=== PATIENT | female | born 1975 | race Caucasian/White ===

== ENCOUNTER 2021-01-25 17:31 | Observation (INO) | payer MEDICAID, OTHER ==
[~2021-01-25] VITALS: Ht 149.9 cm; Wt 105.5 kg
[2021-01-25] MEDS ORDERED: BUSP7.5T5 PO (17:50)
[2021-01-25] MEDS ORDERED: CETI10TA32 PO (17:51)
[2021-01-25] MEDS ORDERED: CYCL5TAB PO (17:51)
[2021-01-25] MEDS ORDERED: DULO30CA2 PO (17:52)
[2021-01-25] MEDS ORDERED: ALBU18HF MT (17:53)
[2021-01-25 18:16] LABS: BASOPHILS % (AUTO) 0 % (0-1); EOSINOPHILS % (AUTO) 1 % (1-7); LYMPHOCYTES % (AUTO) 27 % (22-44); MEAN CORPUSCULAR HGB CONC 34.7 g/dL (32.4-35.8); MEAN PLATELET VOLUME 8.2 fL (7.4-10.4); MONOCYTES % (AUTO) 7 % (2-9); NEUTROPHILS % (AUTO) 64 % (42-75); PLATELET COUNT 321 x10^3/uL (130-400); RED BLOOD COUNT 4.76 x10^6/uL (3.82-5.3); RED CELL DISTRIBUTION WIDTH 13.3 % (9.6-15.2)
[2021-01-25 18:17] LABS: MD NO
[2021-01-25 18:27] LABS: ALBUMIN 3.4 g/dL (3.4-5.0); ANION GAP 8 mmol/L (5-15); CALCIUM 8.4 mg/dL (8.5-10.1); CHLORIDE 107 mmol/L (98-107); CREATININE 0.74 mg/dL (0.55-1.02)
[2021-01-25 18:35] LABS: ALANINE AMINOTRANSFERASE 45 U/L (12-78); ALKALINE PHOSPHATASE 105 U/L (45-117); BILIRUBIN,TOTAL 0.6 mg/dL (0.2-1.0); TOTAL PROTEIN 7.3 g/dL (6.4-8.2)
--- NOTE | 2021-01-25 19:00 | NUR ---
report from andie felix
--- NOTE | 2021-01-25 19:40 | NUR ---
pt chart placed for recheck by erp
[2021-01-25] MEDS ORDERED: LORazepam 2 MG/ML, 1ML IVPush ONE (20:30)
--- NOTE | 2021-01-25 21:30 | NUR ---
Pt reports that med relieved a majority of her numbness, still has numbness in R arm, VSS, NADN
[2021-01-25] MEDS ORDERED: ASPIRIN 81 MG TABLET CHEW ONE (22:26)
[2021-01-25] MEDS ORDERED: ASPIRIN 81 MG TABLET CHEW PO ONE (22:30)
--- NOTE | 2021-01-25 22:50 | NUR ---
Report to Sailaja MAXWELL
[2021-01-25 23:20] VITALS: BP 105/69
[2021-01-25] MEDS ORDERED: DOCUSATE 100 MG CAPSULE PO PRN (23:30)
[2021-01-25] MEDS ORDERED: hydrALAzine 20 MG/ML, 1ML IVPush PRN (23:30)
[2021-01-25] MEDS ORDERED: ONDANSETRON ODT 4 MG PO PRN (23:30)
[2021-01-25] MEDS ORDERED: ONDANSETRON 2MG/ML, 2ML IVPush PRN (23:30)
[2021-01-25] MEDS ORDERED: PROMETHAZINE 25 MG/ML, 1ML IM PRN (23:30)
[2021-01-25] MEDS ORDERED: ACETAMINOPHEN 325 MG TABLET PO PRN (23:30)
[2021-01-25] MEDS ORDERED: POTASSIUM CHLORIDE 20 MEQ TAB.ER.PRT PO ONE (23:30)
[2021-01-25] MEDS ORDERED: POLYETHYLENE GLYCOL 17 GM PACKET PO PRN (23:30)
[2021-01-25] MEDS ORDERED: BISACODYL 10 MG SUPP PR PRN (23:30)
[2021-01-25] MEDS ORDERED: ALBUTEROL SULFATE 2.5 MG/3 ML NPPB PRN (23:30)
[2021-01-26 00:35] VITALS: BP 105/69
[2021-01-26 01:16] VITALS: BP 111/74
[2021-01-26 02:01] VITALS: BP 110/68
[2021-01-26] MEDS ORDERED: MECLIZINE 12.5 MG TABLET PO PRN (04:00)
[2021-01-26 05:26] LABS: BASOPHILS % (AUTO) 1 % (0-1); EOSINOPHILS % (AUTO) 2 % (1-7); LYMPHOCYTES % (AUTO) 37 % (22-44); MEAN CORPUSCULAR HEMOGLOBIN 31.3 pg (27.0-34.8); MEAN CORPUSCULAR HGB CONC 35.1 g/dL (32.4-35.8); MEAN PLATELET VOLUME 8.7 fL (7.4-10.4); MONOCYTES % (AUTO) 9 % (2-9); NEUTROPHILS % (AUTO) 51 % (42-75); PLATELET COUNT 278 x10^3/uL (130-400); RED CELL DISTRIBUTION WIDTH 13.3 % (9.6-15.2)
[2021-01-26 05:28] LABS: MD NO
[2021-01-26 05:38] LABS: ALBUMIN 3.1 g/dL (3.4-5.0); ANION GAP 7 mmol/L (5-15); CALCIUM 8.2 mg/dL (8.5-10.1); CHLORIDE 108 mmol/L (98-107)
[2021-01-26 05:48] LABS: ALANINE AMINOTRANSFERASE 42 U/L (12-78); ALKALINE PHOSPHATASE 95 U/L (45-117); BILIRUBIN,TOTAL 0.8 mg/dL (0.2-1.0); CHOLESTEROL, TOTAL 130 mg/dL (140-239); CREATININE 0.69 mg/dL (0.55-1.02); HDL CHOL % 33 % (28-40); HDL CHOLESTEROL (DIRECT) 43 mg/dL (40-60); LDL CHOLESTEROL,CALCULATED 68 mg/dL (54-169); LDL/HDL RATIO 1.6 (0.5-3.0); TOTAL PROTEIN 6.8 g/dL (6.4-8.2); TRIGLYCERIDES 97 mg/dL (50-200); VLDL CHOLESTEROL 19 mg/dL (0-25)
[2021-01-26] MEDS ORDERED: DIAZEPAM 5 MG/ML, 2ML IV ONE (07:00)
[2021-01-26] MEDS: HYDROCHLOROTHIAZIDE 12.5 MG CAPSULE PO SCH ×2 (07:38→20:48)
[2021-01-26 07:43] VITALS: BP 127/85
[2021-01-26] MEDS ORDERED: BUSPIRONE 5 MG TABLET PO SCH (09:00)
[2021-01-26] MEDS ORDERED: DULOXETINE 30 MG CAPSULE.DR PO SCH (09:00)
[2021-01-26 13:06] VITALS: BP 120/81
[2021-01-26] MEDS: OXYcodone IR 5MG TABLET PO PRN ×2 (14:14→18:40)
[2021-01-26] MEDS ORDERED: SUMATRIPTAN 25 MG TABLET ONE (17:58)
[2021-01-26] MEDS ORDERED: SUMATRIPTAN 50 MG TABLET PO ONE (18:00)
[2021-01-26 18:54] VITALS: BP 117/78
[2021-01-26] MEDS ORDERED: OMNIPAQUE 350 MG/ML, 100ML BOTTLE ONE (20:31)
[2021-01-26] MEDS ORDERED: TEMAZEPAM 15 MG CAPSULE ONE (20:45)
[2021-01-26] MEDS ORDERED: TEMAZEPAM 15 MG CAPSULE PO PRN (21:00)
[2021-01-27 01:02] VITALS: BP 127/88
[2021-01-27 06:54] VITALS: BP 132/90
[2021-01-27] MEDS ORDERED: SUMATRIPTAN 25 MG TABLET ONE (07:58)
[2021-01-27] MEDS ORDERED: SUMATRIPTAN 50 MG TABLET PO PRN (08:00)
[2021-01-27] MEDS ORDERED: KETOROLAC 30 MG/1 ML IM ONE (08:00)
[2021-01-27] MEDS ORDERED: BUSPIRONE 5 MG TABLET PO SCH (09:00)
[2021-01-27] MEDS ORDERED: DULOXETINE 30 MG CAPSULE.DR PO SCH (09:00)
[2021-01-27] MEDS: HYDROCHLOROTHIAZIDE 12.5 MG CAPSULE PO SCH (09:10)
[2021-01-27] MEDS ORDERED: KETOROLAC 30 MG/1 ML IVPush ONE (10:00)
[2021-01-27 12:42] VITALS: BP 114/78
[2021-01-27] MEDS ORDERED: SUMATRIPTAN 50 MG TABLET PO SCH (15:30)
[2021-01-27] MEDS ORDERED: BUTALB/APAP/CAFFEINE 50MG/325MG/40MG ONE (15:37)
[2021-01-27] MEDS ORDERED: BUTALB/APAP/CAFFEINE 50MG/325MG/40MG PO ONE (16:00)
[2021-01-27] MEDS ORDERED: LEVE500T53 PO (16:17)
[2021-01-27] MEDS ORDERED: SUMA50TA3 PO (16:17)
[2021-01-27] MEDS ORDERED: LEVETIRACETAM 500 MG TABLET PO SCH (21:00)
== END 2021-01-27 18:00 | disposition home or self-care (01) ==
LOC: ED 18:17 → EDIP 22:54 → INTOOBSV 22:54 → 4WST 23:11
PROVIDERS: ADMIT Internal Medicine; ATTEND Hospitalist
DX: R53.1 Weakness (principal); R20.2 Paresthesia of skin; E87.6 Hypokalemia; F32.9 Major depressive disorder, single episode, unspecified; F41.1 Generalized anxiety disorder; H81.09 Meniere's disease, unspecified ear; E66.9 Obesity, unspecified; J45.909 Unspecified asthma, uncomplicated; F12.90 Cannabis use, unspecified, uncomplicated; Z79.899 Other long term (current) drug therapy
CPT/HCPCS: 36415; 70450; 70496; 70498; 70551; 72141; 80053; 80061; 83036; 83735; 84100; 84443; 84703; 85025; 93005; 94660; 96374; 96375; 99285; G0378; J1885; J2060; J2405; J3360; Q9967